=== PATIENT | male | born 1945 | race Caucasian/White ===

== ENCOUNTER 2021-05-07 13:38 | Outpatient (CLI) | payer MEDICARE, BC ==
[2021-05-07 15:16] LABS: #Basophils 0.1 10x3/uL (0.0-0.2); #Eosinphils 0.3 10x3/uL (0.0-0.5); #Monocytes 0.7 10x3/uL (0.0-1.1); #Neutrophils 4.6 10x3/uL (1.5-8.4); %Basophils 0.9 % (0.0-2.0); %Eosinophils 4.4 % (0.0-6.0); %Lymphocytes 19.9 % (18.0-47.0); %Monocytes 9.4 % (0.0-10.0); %Neutrophils 64.8 % (40.0-75.0); Hemoglobin 14.6 g/dL (13.5-17.5); Mean Corpuscular Hemoglobin 29.1 pg (27.0-33.0); Mean Corpuscular Volume 88.2 fl (81.2-95.1); Mean Platelet Volume 10.1 fl (7.4-10.4); Platelet Count 302 10x3/uL (150-450); RBC Distribution Width 14.1 % (11.5-14.5); Red Blood Cell (RBC) Count 5.02 10x6/uL (4.32-5.72)
[2021-05-07 15:28] LABS: ALT (SGPT) 14 U/L (8-55); AST (SGOT) 14 U/L (5-34); Albumin 4.3 g/dL (3.4-4.8); Alkaline Phosphatase 61 U/L (40-110); Anion Gap 15 mmol/L (10-20); BUN (Urea Nitrogen) 18 mg/dL (8.4-25.7); Bilirubin, Total 0.7 mg/dL (0.2-1.2); Calc. Creatinine Clearance 0 mL/min (70-130); Calcium 9.7 mg/dL (7.8-10.44); Carbon Dioxide 26 mmol/L (23-31); Chloride 105 mmol/L (98-107); Globulin 3.2 g/dL (2.4-3.5); Glucose 85 mg/dL (83-110); Potassium 4.7 mmol/L (3.5-5.1); Protein, Total 7.5 g/dL (5.8-8.1); Sodium 141 mmol/L (136-145)
== END 2021-05-07 13:39 | disposition home or self-care (01) ==
LOC: LABBT 13:38
PROVIDERS: ATTEND Internal Medicine Cardiovascular Disease
DX: Z01.812 Encounter for preprocedural laboratory examination (principal); I25.10 Atherosclerotic heart disease of native coronary artery without angina pectoris
CPT/HCPCS: 80053; 85025

== ENCOUNTER 2021-05-12 06:00 | Day surgery (SDC) | payer MEDICARE, BC ==
[2021-05-07 10:52] VITALS: BMI 41.3
[2021-05-12] MEDS ORDERED: Iopamidol 370 76% 50 ML VIAL FS ONE (10:02)
[2021-05-12] MEDS ORDERED: Iopamidol 370 76% 100 ML VIAL ONE (10:02)
[2021-05-12] MEDS ORDERED: Lidocaine 1% (PF) 30 ML VIAL ONE (10:37)
[2021-05-12] MEDS ORDERED: Nitroglycerin 100MG/250ML BOT 250 ML ONE (10:38)
[2021-05-12] MEDS ORDERED: Verapamil 5 MG/2 ML VIAL ONE (10:38)
[2021-05-12] MEDS ORDERED: Heparin 10,000 UNITS/ 10 ML VIAL ONE ×3 (10:38→13:40)
[2021-05-12 11:07] LABS: Anion Gap 13 mmol/L (10-20); BUN (Urea Nitrogen) 17 mg/dL (8.4-25.7); Calc. Creatinine Clearance 73 mL/min (70-130); Calcium 9.3 mg/dL (7.8-10.44); Carbon Dioxide 26 mmol/L (23-31); Chloride 105 mmol/L (98-107); Glucose 117 mg/dL (83-110); Potassium 4.5 mmol/L (3.5-5.1); Sodium 139 mmol/L (136-145)
[2021-05-12] MEDS ORDERED: Fentanyl 100 MCG/2 ML VIAL ONE (11:47)
[2021-05-12] MEDS ORDERED: Midazolam HCl 2 mg/2 ml Vial ONE ×2 (11:47→13:07)
[2021-05-12] MEDS ORDERED: Clopidogrel Bisulfate 300 MG TAB ONE (12:37)
[2021-05-12] MEDS ORDERED: Nitroglycerin 4.9 GM Bottle ONE (13:17)
[2021-05-12] MEDS ORDERED: Ondansetron PF 4 MG/2 ML Vial ONE (13:18)
[2021-05-12] MEDS ORDERED: Morphine 4 MG/ML VIAL ONE (13:27)
[2021-05-12] MEDS ORDERED: Acetaminophen/Codeine 30-300mg Tablet ONE ×2 (19:14)
== END 2021-05-12 22:03 | disposition home or self-care (01) ==
LOC: SDC 06:00
PROVIDERS: ATTEND Internal Medicine Cardiovascular Disease
PROC: 027034Z Dilation of Coronary Artery, One Artery with Drug-eluting Intraluminal Device, Percutaneous Approach (ICD-10-PCS; principal; 2021-05-12)
PROC: 4A023N7 Measurement of Cardiac Sampling and Pressure, Left Heart, Percutaneous Approach (ICD-10-PCS; 2021-05-12)
PROC: B2111ZZ Fluoroscopy of Multiple Coronary Arteries using Low Osmolar Contrast (ICD-10-PCS; 2021-05-12)
DX: R07.89 Other chest pain (principal); I25.10 Atherosclerotic heart disease of native coronary artery without angina pectoris; I10 Essential (primary) hypertension; M19.90 Unspecified osteoarthritis, unspecified site; E78.5 Hyperlipidemia, unspecified; M10.9 Gout, unspecified; G47.33 Obstructive sleep apnea (adult) (pediatric); Z86.16 Personal history of COVID-19; Z79.02 Long term (current) use of antithrombotics/antiplatelets; Z79.899 Other long term (current) drug therapy; Z91.018 Allergy to other foods; Z95.5 Presence of coronary angioplasty implant and graft
CPT/HCPCS: 80048; 85347 ×2; 92978; 93005; 93458; C1753; C1769; C9600; 36415; 92928; 99152; 99153; C1874; J1644; J2001; J2250; J2270; J2405; J3010; Q9967

== ENCOUNTER 2023-03-15 08:13 | Outpatient (CLI) | payer MEDICARE, BC | END 2023-03-15 08:14 | disposition home or self-care (01) | LOC: BICMRI 08:13 | PROVIDERS: ATTEND Family Medicine | DX: S83.241D Other tear of medial meniscus, current injury, right knee, subsequent encounter (principal); M71.21 Synovial cyst of popliteal space [Baker], right knee; M17.11 Unilateral primary osteoarthritis, right knee; M23.311 Other meniscus derangements, anterior horn of medial meniscus, right knee | CPT/HCPCS: 70210 ==